=== PATIENT | female | born 1960 | race Caucasian/White ===

== ENCOUNTER 2022-04-25 11:12 | Outpatient (REF) | payer OTHER, SELFPAY ==
--- NOTE | ~2022-04-25 | XR_ITS ---
EXAMINATION: XR KNEE, RIGHT CLINICAL INFORMATION: Right knee pain. COMPARISON: None TECHNIQUE: Four views of the right knee. FINDINGS: No significant tricompartmental degenerative joint changes are seen. There is no acute fracture, dislocation or significant joint effusion. Questionable nonacute deformity of the proximal fibula. The soft tissues are unremarkable. XR/XR knee RT 4V IMPRESSION: No acute fracture or significant degenerative changes. Possible healed proximal fibular fracture. Correlate with patient history.
== END 2022-04-25 11:13 | disposition home or self-care (01) ==
LOC: HO.HMGCX 11:12
PROVIDERS: PCP Internal Medicine; Visit Provider Internal Medicine
DX: M25.561 Pain in right knee (principal)
CPT/HCPCS: 73564

== ENCOUNTER 2023-03-29 11:49 | Outpatient (AMB) | payer OTHER, SELFPAY ==
--- NOTE | 2023-03-29 14:32 | MHC.OFFWIV ---
Intake Vital Signs 03/29/23 14:36 Height 5 ft 4 in Weight 186 lb BMI 31.9 BP 138/80 Blood Pressure Location Rt brachial Position Sitting Pulse 93 Pulse Source Pulse Oximeter Temp 98.2 F Temp Source Temporal Artery Scan Pulse Oximetry (%) 96 Intake Visit Reasons: EST/ right side pain Intake Note: pt is here for c/o right side pain 3x weeks denies injury Patient Tobacco Use Status: Never used Tobacco Allergies fluphenazine [From Prolixin] Allergy (Mild, Verified 03/29/23 14:35) Anaphylaxis ibuprofen [From Advil Cold and Sinus] Adverse Reaction (Mild, Verified 03/29/23 14:35) Swelling pseudoephedrine [From Advil Cold and Sinus] Adverse Reaction (Mild, Verified 03/29/23 14:35) Swelling Coding
[2023-03-29 14:36] VITALS: BP 138/80; PULSE 93; TEMP 36.8; O2SAT 96; BMI 31.9
--- NOTE | 2023-03-29 14:52 | AM.OFFWIN_ITS ---
Intake Vital Signs 03/29/23 14:36 Height 5 ft 4 in Weight 186 lb BMI 31.9 BP 138/80 Blood Pressure Location Rt brachial Position Sitting Pulse 93 Pulse Source Pulse Oximeter Temp 98.2 F Temp Source Temporal Artery Scan Pulse Oximetry (%) 96 Intake Visit Reasons: EST/ right side pain Patient Tobacco Use Status: Never used Tobacco Allergies fluphenazine [From Prolixin] Allergy (Mild, Verified 03/29/23 14:35) Anaphylaxis ibuprofen [From Advil Cold and Sinus] Adverse Reaction (Mild, Verified 03/29/23 14:35) Swelling pseudoephedrine [From Advil Cold and Sinus] Adverse Reaction (Mild, Verified 03/29/23 14:35) Swelling HPI EST/ right side pain HPI Details Patient is a 62-year-old female who comes to the walk in clinic with a friend complaining of acute onset of right side abdominal and flank discomfort for the last few days. She states that she does have a history of IBS which usually flares up with constipation symptoms, however this has not been an issue for her recently. She takes docusate twice a day to soften her stools and they have been regular bowel movements recently. She denies any blood in the stool or irregular bowel movements. She has no dysuria but she did report seeing blood in her urine in the office today. No urinary frequency or other urinary symptoms, except for a sharp pain to the flank area yesterday that she worried was a kidney stone. She denies current fever or chills, but states that she had a temp of 99 yesterday, which resolved today. She reports still having her appendix, and no reported surgeries. She has associated GI history of GERD for which she has been stable with a PPI. She takes psychiatric medications. No pelvic pain, chest pain, nausea vomiting or diarrhea, shortness of breath, cough, weakness or dizziness, malaise or myalgias, anorexia or other associated significant symptoms. [facility] Social History Patient Tobacco Use Status: Never used Tobacco Review of Systems Const All systems reviewed & are unremarkable except as noted in HPI and below Physical Exam Vital Signs: Last Vital Signs Temp 98.2 F 03/29/23 14:36 Pulse 93 03/29/23 14:36 BP 138/80 03/29/23 14:36 Pulse Ox 96 03/29/23 14:36 BMI result Body Mass Index 31.9 Const General: cooperative, healthy appearing, no acute distress, alert, awake, Physically active and well groomed; No anxious, diaphoretic, ill appearing, intoxicated appearing, poor hygiene or tired appearing Nutritional Appearance: average body habitus Orientation/consciousness: oriented to person Limitations: no limitations Chest Chest palpation & inspection: normal palpation of entire chest wall Resp Effort & Inspection: normal respiratory effort, able to speak in complete sentences, no audible wheezes, no cough, no grunting, not labored, no nasal flaring, no retractions and symmetric chest movement Auscultation: clear to auscultation bilaterally, no crackles, no rales, no rhonchi, no wheezes, lung sounds not diminished and No rub present Cardio Rate: regular rate GI Inspection: No abdominal wall ecchymosis, No Abdominal wall edema, No distended, Yes obesity, No visible pulsation and No visible peristalsis Palpation (GI): Soft to palpation, not firm, Tenderness to palpation present (GI) at McBurney's point (some tenderness); with no rebound tenderness, no guarding, not rigid, No hepatosplenomegaly present, no hernias, no masses, no pulsatile masses, no aortic enlargement, No Ascites present, No Rebound tenderness present and No Bladder palpation abnormal Percussion: Yes normal to percussion General: No Bladder palpation abnormal and Yes CVA tenderness (just lateral to it) Back/Spine/Pelvis Back: CVA tenderness (just lateral to it) Skin Other: Good color, warm and dry Neuro General: oriented to person Psych Appearance: grossly normal Mental Status: mental status grossly normal Speech and movement: Normal speech and movement present Affect: Blunted affect present Attitude: cooperative Thought process: Normal thought process present Insight: Good insight present (Psych) Judgement: Good judgement present (Psych) Results AMB Urinalysis, Automated UA Leukoctes 70 Edison/uL Last Edit by Law Van CMA on 03/29/23 15:35 UA Nitrite Negative Last Edit by Law Van CMA on 03/29/23 15:35 UA Urobilinogen 0.2 mg/dL Last Edit by Law Van CMA on 03/29/23 15 :35 UA Protein 0 mg/dL Last Edit by Law Van CMA on 03/29/23 15:35 UA pH 6.5 Last Edit by Law Van CMA on 03/29/23 15:35 UA Blood 25 Raji/uL Last Edit by Law Van, KRISTIN on 03/29/23 15:35 UA Specific [place] 1.015 Last Edit by Law Van CMA on 03/29/23 15:35 UA Ketone Negative Last Edit by Law Van CMA on 03/29/23 15:35 UA Bilirubin 0 mg/dL Last Edit by Law Van CMA on 03/29/23 15:35 UA Glucose 0 mg/dL Last Edit by Law Van CMA on 03/29/23 15:35 Results Reviewed Results Reviewed: Laboratory Last Values Urine pH (Auto) 6.5 03/29/23 15:28 Specific [place] (Auto) 1.015 03/29/23 15:28 Urine Protein (Auto) 0 mg/dL 03/29/23 15:28 Glucose (UA)(Auto) 0 mg/dL 03/29/23 15:28 Urine Ketones (Auto) Negative 03/29/23 15:28 Urine Blood (Auto) 25 Raji/uL 03/29/23 15:28 Urine Nitrite (Auto) Negative 03/29/23 15:28 Urine Bilirubin (Auto) 0 mg/dL 03/29/23 15:28 Urine Urobilinogen (Auto) 0.2 mg/dL 03/29/23 15:28 Leukocyte Esterase (Auto) 70 Edison/uL 03/29/23 15:28 Assessment & Plan Assessment & Plan (1) Flank pain: Code(s): R10.9 - Unspecified abdominal pain Plan Patient is a 62-year-old female with acute onset of right side abdominal and flank discomfort for the last few days, as well as possible gross hematuria today, positive for microscopic hematuria and leukocytes today on dip. She does have a history of IBS which usually flares up with constipation symptoms, however she takes docusate twice a day to soften her stools and they have been regular bowel movements recently. She is eating and drinking normally, with no nausea, vomiting or diarrhea. She reports a low grade temp yesterday that has resolved today. She is non toxic in appearance with stable vitals today. Her GI exam is concerning for possible appendicitis however, due to tenderness over McBurney's point, although apparently the discomfort is worse at the right flank, closer to the kidney. Her urine suggests a possible UTI, worrisome for being upper tract involvement. I told her that we didn't have the ability to do a proper evaluation of her at the walk in, and that the safest option was to go to the emergency department. The patient and her friend were upset at this and they stated that they had already waited over two hours to be seen by me. I told them that a CT would be needed to rule out appendicitis and kidney stone as well as other possible life threatening causes of abdominal/flank pain. I did tell them that it is possible that this is pyelonephritis and that it could potentially be treated out patient, but that I couldn't treat the other potentially life threatening causes and that she could mask appendicitis with the antibiotic. She stated that if I wrote the antibiotic for her, that she would go to the emergency department if it didn't resolve her issue by the next day, or if she got any worse at all. Her friend witnessed this. Orders: Orders AMB Urinalysis Automated 03/29/23 Z13.9 - Encounter for screening, unspecified Medications: New sulfamethoxazole-trimethoprim 800-160 mg (Bactrim DS) 1 tab PO BID 20 tabs 0RF 10 days Coding Level of Care Code Est Pt Level 4 (89040) Diagnoses Flank pain R10.9
== END 2023-03-29 15:41 | disposition home or self-care (01) ==
PROVIDERS: PCP Internal Medicine; Visit Provider Physician Assistant Medical
DX: R10.9 Unspecified abdominal pain (principal)
CPT/HCPCS: 81003; 99214

== ENCOUNTER 2024-01-02 15:06 | Outpatient (AMB) | payer OTHER, SELFPAY ==
[2024-01-02 15:13] VITALS: BP 132/82; PULSE 94; TEMP 36.9; O2SAT 97
--- NOTE | 2024-01-02 15:13 | AM.OFFWIN_ITS ---
Intake Vital Signs 01/02/24 15:13 Height 5 ft 4 in BP 132/82 Blood Pressure Location Lt brachial Position Sitting Pulse 94 Pulse Source Pulse Oximeter Temp 98.5 F Temp Source Oral Pulse Oximetry (%) 97 Oxygen Delivery Method Room Air Intake Visit Reasons: EP lower back pain Intake Note: pt is here for lower back pain, patient denies injury but states that she has had more urine output and frequency Patient Tobacco Use Status: Never used Tobacco Allergies fluphenazine [From Prolixin] Allergy (Mild, Verified 01/02/24 15:28) Anaphylaxis ibuprofen [From Advil Cold and Sinus] Adverse Reaction (Mild, Verified 01/02/24 15:28) Swelling pseudoephedrine [From Advil Cold and Sinus] Adverse Reaction (Mild, Verified 01/02/24 15:28) Swelling Do you need a note to return to daycare/school/sports/work: No HPI HPI Comments History of Present Illness Details 63 y/o female patient who presents to [facility] in clinic with c/o lower b ack pain associated with urinary frequency x 5 days. [facility] Social History Patient Tobacco Use Status: Never used Tobacco Review of Systems Const All systems reviewed & are unremarkable except as noted in HPI and below Physical Exam Vital Signs: Last Vital Signs Temp 98.5 F 01/02/24 15:13 Pulse 94 01/02/24 15:13 BP 132/82 01/02/24 15:13 Pulse Ox 97 01/02/24 15:13 Oxygen Delivery Method Room Air 01/02/24 15:13 Const General: comfortable and no acute distress Nutritional Appearance: obese Orientation/consciousness: patient oriented x3 Back/Spine/Pelvis Back: back tenderness Thoracic/Lumbar Spine: thoracic spinal tenderness and lumbar spinal tenderness Neuro General: patient oriented x3, gait normal and moves all extremities Psych Speech and movement: Normal speech and movement present Results AMB Urinalysis, Automated UA Leukoctes 500 Edison/uL Last Edit by Law Van CMA on 01/02/24 15:3 2 UA Nitrite Negative Last Edit by Law Van CMA on 01/02/24 15:32 UA Urobilinogen 0.2 mg/dL Last Edit by Law Van CMA on 01/02/24 15 :32 UA Protein 0 mg/dL Last Edit by Law Van CMA on 01/02/24 15:32 UA pH 6.0 Last Edit by Law Van CMA on 01/02/24 15:32 UA Blood 25 Raji/uL Last Edit by Law Van CMA on 01/02/24 15:32 UA Specific [place] 1.015 Last Edit by Law Van CMA on 01/02/24 15:32 UA Ketone Negative Last Edit by Law Van CMA on 01/02/24 15:32 UA Bilirubin 0 mg/dL Last Edit by Law Van CMA on 01/02/24 15:32 UA Glucose 0 mg/dL Last Edit by Law Van CMA on 01/02/24 15:32 Results Reviewed Results Reviewed: Laboratory Last Values Urine pH (Auto) 6.0 01/02/24 15:30 Specific [place] (Auto) 1.015 01/02/24 15:30 Urine Protein (Auto) 0 mg/dL 01/02/24 15:30 Glucose (UA)(Auto) 0 mg/dL 01/02/24 15:30 Urine Ketones (Auto) Negative 01/02/24 15:30 Urine Blood (Auto) 25 Raji/uL 01/02/24 15:30 Urine Nitrite (Auto) Negative 01/02/24 15:30 Urine Bilirubin (Auto) 0 mg/dL 01/02/24 15:30 Urine Urobilinogen (Auto) 0.2 mg/dL 01/02/24 15:30 Leukocyte Esterase (Auto) 500 Edison/uL 01/02/24 15:30 Assessment & Plan Assessment & Plan (1) Low back pain: Code(s): M54.50 - Low back pain, unspecified Qualifiers: Chronicity: chronic Back pain laterality: midline Sciatica presence: without sciatica Qualified Code(s): M54.50 - Low back pain, unspecified; G89.29 - Other chronic pain Plan: Acetaminophen for pain relief Ice/Hot (2) Cystitis: Code(s): N30.90 - Cystitis, unspecified without hematuria Plan: Prescribed Macrobid x 7 days Hydrate well with plenty of water Clean catch UA ordered. Orders: Orders AMB Urinalysis Automated Today Z13.9 - Encounter for screening, unspecified Medications: New nitrofurantoin monohyd/m-cryst 100 mg (Macrobid) must administer with a meal/food 100 mg PO Q12H 7 days 14 caps 0RF N30.90 - Cystitis, unspecified without hematuria acetaminophen 1,000 mg (2 x 500 mg) PO Q6H PRN 30 caps 0RF pain (scale score 4- 6) G89.29 - Other chronic pain, M54.50 - Low back pain, unspecified Coding Level of Care Code Est Pt Level 3 (64236) Diagnoses Chronic midline low back pain without sciatica M54.50; G89.29 Chronicity: chronic Back pain laterality: midline Sciatica presence: without sciatica Cystitis N30.90 Time Spent (min) 15
== END 2024-01-02 15:48 | disposition home or self-care (01) ==
PROVIDERS: PCP Internal Medicine; Visit Provider Nurse Practitioner Family
DX: M54.50 Low back pain, unspecified (principal); G89.29 Other chronic pain; N30.90 Cystitis, unspecified without hematuria; Z13.9 Encounter for screening, unspecified
CPT/HCPCS: 81003; 99213

== ENCOUNTER 2024-04-05 14:52 | Outpatient (REF) | payer OTHER, SELFPAY | END 2024-04-05 14:53 | disposition home or self-care (01) | LOC: HO.LAB 14:52 | PROVIDERS: PCP Internal Medicine; Visit Provider Physician Assistant | DX: R05.9 Cough, unspecified (principal); J06.9 Acute upper respiratory infection, unspecified | CPT/HCPCS: 99202 ==

== ENCOUNTER 2024-04-05 14:52 | Outpatient (AMB) | payer OTHER, SELFPAY ==
--- NOTE | 2024-04-05 15:12 | AM.OFFWIN_ITS ---
Intake Vital Signs 04/05/24 15:13 Height 5 ft 4 in Weight 195 lb 4 oz BMI 33.5 BP 130/70 Blood Pressure Location Rt brachial Position Sitting Pulse 98 Pulse Source Pulse Oximeter Pulse Oximetry (%) 93 Oxygen Delivery Method Room Air Intake Visit Reasons: EP need to be tested for covid/body aches Intake Note: Patient is here today for sick visit for possible covid exposure 3 days ago. Symptoms are body aches and vomiting. 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 She denies any fevers, ear pain, sinus pain or shortness of breath. She states that her mother tested positive for COVID today and she visits her mom 3 days ago so she is concerned about the exposure. She denies a history of COPD or asthma. She states she has not tried taking any medications to feel better. [facility] Social History Patient Tobacco Use Status: Never used Tobacco Review of Systems Const All systems reviewed & are unremarkable except as noted in HPI and below Physical Exam Vital Signs: Last Vital Signs Pulse 98 04/05/24 15:13 BP 130/70 04/05/24 15:13 Pulse Ox 93 04/05/24 15:13 Oxygen Delivery Method Room Air 04/05/24 15:13 BMI result Body Mass Index 33.5 Const General: cooperative, healthy appearing, comfortable and no acute distress Orientation/consciousness: patient oriented x3 Limitations: no limitations HEENT Head: Yes normal to inspection Ears: hearing grossly normal bilaterally, external ears normal and TM's normal bilaterally General nose exam: Normal external nose present, Normal nares present and No nasal discharge present Face and sinus: Yes normal facial exam and Yes sinuses nontender Mouth: Normal oral and palatal mucosa present and moist mucous membranes Throat: Yes tonsils normal, Yes uvula midline and Yes posterior oropharynx abnormal (Erythema) Eyes General: appearance normal, both eyes and all related structures Neck Neck: Yes normal visual inspection Resp Effort & Inspection: normal respiratory effort, able to speak in complete sentences, Actively coughing, no respiratory distress, not tachypneic, no tripod positioning and no use of accessory muscles Auscultation: clear to auscultation bilaterally Cardio Rate: regular rate Rhythm: regular rhythm Heart sounds: normal S1 and S2 Skin General skin exam: no rashes or lesions noted Neuro General: patient oriented x3 Extrem General: Yes normal to inspection and Yes no clubbing, cyanosis or edema Assessment & Plan Assessment & Plan (1) URI (upper respiratory infection): Code(s): J06.9 - Acute upper respiratory infection, unspecified Qualifiers: URI type: unspecified URI Qualified Code(s): J06.9 - Acute upper respiratory infection, unspecified Plan: Will get a chest x-ray as patient was satting 93% on room air however offered no complaints of shortness of breath. Flu COVID and RSV testing sent. Recommended patient stay hydrated get lots of rest and use [id number] medications to treat her symptoms. Plan See above Orders: Orders XR chest 2V Today R05.9 - Cough, unspecified SARS-CoV2/FLU/RSV Today J06.9 - Acute upper respiratory infection, unspecified Coding Level of Care Code New Pt Level 4 (82794) Diagnoses Upper respiratory tract infection, unspecified type J06.9 URI type: unspecified URI
[2024-04-05 15:13] VITALS: BP 130/70; PULSE 98; O2SAT 93; BMI 33.5
== END 2024-04-05 15:59 | disposition home or self-care (01) ==
PROVIDERS: PCP Internal Medicine; Visit Provider Physician Assistant
DX: J06.9 Acute upper respiratory infection, unspecified (principal)

== ENCOUNTER 2024-04-05 15:53 | Outpatient (REF) | payer OTHER, SELFPAY ==
--- NOTE | ~2024-04-05 | XR_ITS ---
EXAMINATION: XR CHEST CLINICAL INFORMATION: Cough. COMPARISON: None available. TECHNIQUE: 2 views of the chest were obtained. FINDINGS: No significant abnormality is noted involving the heart, lungs, mediastinum, or soft tissues. Mild degenerative changes of the spine. XR/XR chest 2V IMPRESSION: Unremarkable examination. Electronically signed by: Naseem Whelan MD 04/05/2024 05:02 PM EDT RP
[2024-04-06 11:02] LABS: Influenza A PCR NEGATIVE (Negative); Influenza B PCR NEGATIVE (Negative); Resp Syncy Virus RNA Qual PCR NEGATIVE (Negative); SARS COV2 PCR INHOUSE NEGATIVE (Negative)
== END 2024-04-05 15:54 | disposition home or self-care (01) ==
LOC: HO.HMGCX 15:53
PROVIDERS: PCP Internal Medicine; Visit Provider Physician Assistant
DX: R05.9 Cough, unspecified (principal); J06.9 Acute upper respiratory infection, unspecified
CPT/HCPCS: 0241U; 71046

== ENCOUNTER 2024-11-25 13:21 | Outpatient (REF) | payer OTHER, SELFPAY ==
--- NOTE | ~2024-11-25 | MR_ITS ---
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 No acute fracture or osseous marrow replacement process. Craniocervical junction is unremarkable. Cervical cord is normal in size and signal. Prevertebral soft tissues are intact. C1-2: Unremarkable. C2-3: Unremarkable. C3-4: Tiny central disc protrusion effaces the thecal sac. No contour deformity in the spinal cord or spinal stenosis. Mild bilateral uncovertebral osteophyte foraminal stenoses. C4-5: Tiny right central disc protrusion effaces the thecal sac. There is slight contour deformity in the spinal cord. No spinal stenosis. Moderate to moderately severe bilateral uncovertebral osteophyte foraminal stenoses, right greater than left. C5-6: Moderate disc osteophyte complex effaces the thecal sac. There is mild contour deformity in the spinal cord. No spinal stenosis. Moderately severe bilateral uncovertebral osteophyte foraminal stenoses. C6-7: Mild disc osteophyte complex effaces the thecal sac. No contour deformity in the spinal cord or spinal stenosis. Moderate right and severe left uncovertebral osteophyte foraminal stenoses. C7-T1: Moderate disc osteophyte complex effaces the thecal sac. There is mild contour deformity in the spinal cord. No spinal stenosis. Mild bilateral uncovertebral osteophyte foraminal stenoses. Impression: 1.No acute process. 2. No significant spinal stenosis or spinal cord abnormality. 3. Multilevel facet arthrosis and uncovertebral osteophytosis resulting in varying degrees of foraminal stenoses. This document has been electronically signed by: Kailee Garrett DO on 11/26/2024 14:28:16
--- OUTSIDE RECORDS SUMMARY | 2024-11-25 13:27 | XMS_ITS | Encounter Summary ---
Author Organization [employer] Address [address] [place] [address] Care Team Providers Care Document Manager Name Role Phone Unavailable Primary Care Provider Unavailabl e Encounter Details Date Type Department Care Team (Latest Contact Info) Description 10/09/2020 Abstract [facility] CONVERSIONS Dental, Provider, DDS Social History Tobacco Use Types Packs/Day Years Used Date Smoking Tobacco: Never Assessed Comments Unknown Sex and Gender Information Value Date Recorded Sex Assigned at Female 05/06/2022 10:37 AM EDT Legal Sex Female 10:37 AM EDT Gender Identity Female 05/06/2022 10:37 AM EDT Sexual Orientation Straight 05/06/2022 10 :37 AM EDT documented as of this encounter Plan of Treatment Not on file documented as of this encounter Visit Diagnoses Not on filedocumented in this encounter
== END 2024-11-25 13:22 | disposition home or self-care (01) ==
LOC: HO.MRI 13:21
PROVIDERS: PCP Internal Medicine; Visit Provider Psychiatry & Neurology Neurology
DX: G95.9 Disease of spinal cord, unspecified (principal)
CPT/HCPCS: 72141

== ENCOUNTER → 2024-11-25 13:30 | Outpatient (BNV) | payer OTHER, SELFPAY | PROVIDERS: PCP Internal Medicine; Visit Provider Radiology Diagnostic Radiology | DX: M46.92 Unspecified inflammatory spondylopathy, cervical region (principal) | CPT/HCPCS: 72141 ==

== ENCOUNTER 2025-04-14 13:40 | Outpatient (AMB) | payer OTHER, SELFPAY ==
--- NOTE | 2025-04-14 13:45 | A.OFFVIS_ITS ---
Intake Visit Reasons: 4 mo fu Allergies fluphenazine (From Prolixin) Allergy (Mild, Verified 04/14/25 13:53) Anaphylaxis ibuprofen (From Advil Cold and Sinus) Adverse Reaction (Mild, Verified 04/14/25 13:53) Swelling pseudoephedrine (From Advil Cold and Sinus) Adverse Reaction (Mild, Verified 04/14/25 13:53) Swelling Medication List - Last Reconciled 04/14/25 by Sarita Cody CNP acetaminophen 1,000 mg (2 x 500 mg) PO Q6H PRN bupropion HCl XL 150 mg PO DAILY cholecalciferol (vitamin D3) 50 mcg PO DAILY docusate sodium 100 mg PO BID escitalopram oxalate 20 mg PO DAILY gabapentin 600 mg PO BEDTIME lamotrigine 150 mg PO BID lisinopril 5 mg PO DAILY loratadine 10 mg PO DAILY lorazepam 1 mg PO BID PRN melatonin 6 mg PO BEDTIME meloxicam 15 mg PO DAILY olanzapine 5 mg PO BEDTIME olanzapine 20 mg PO BEDTIME pantoprazole 40 mg PO DAILY HPI Comments Details: Pain was better with gabapentin 600mg at bedtime, no medication side effects. She noted reduced frequency of sciatica episodes. Some ongoing chronic low back pain and left leg weakness continue. Pain worsens with extended periods of standing of movement. No falls. Memory was about the same. Previously, complaints of pain in left leg and calf that initially started as s ciatica. History of being off balance that started in 2023 with?5 falls in the last one year.?She notes that her left leg is weaker and sometimes she has trouble getting it up to the running board in a pickup truck.? She feels her balance is worsening and feels unsteady.? There is no true vertigo although sometimes she gets lightheaded.? In 10/2024, she had an episode of left-sided sciatica that subsided within the same day.? She's also had some short-term memory problems, losing things, misplacing things and repeating herself.? She lives alone.? She has 2 daughters who live in the area.? She had a CT scan of the brain on 06/29, which was unremarkable and an MRI of the brain on 09/16/24, which is also reported as being normal. She has?chronic schizoaffective disorder on disability since 2013. [facility], [facility] Medical History (Updated 04/14/25 @ 13:54 by Sarita Cody CNP) URI (upper respiratory infection) Knee pain, right GERD (gastroesophageal reflux disease) Schizoaffective disorder Social History Patient Tobacco Use Status: Never used Tobacco Review of Systems Const Denies chills, Denies daytime sleepiness, Denies difficulty sleeping, Denies fatigue, Denies fever(s), Denies frequent falls, Denies headache(s), Denies increased appetite, Denies poor appetite, Denies snoring, Denies weakness, Denies weight gain and Denies weight loss Eyes Denies loss of vision ENT Denies vertigo, Reports dizziness, Denies headache(s) and Denies neck pain Card Denies chest pain at rest, Denies chest pain with activity, Denies syncope, Denies leg edema, Denies palpitations, Denies dyspnea and Denies dyspnea on exertion Resp Denies cough, Denies dyspnea, Denies dyspnea on exertion and Denies snoring GI Denies abdominal pain, Denies constipation, Denies heartburn, Denies diarrhea and Denies nausea Denies urinary frequency, Denies urinary incontinence and Denies urinary urgency Musc Reports abnormal gait (balance difficulty), Denies back pain, Denies myalgias, Denies arthralgias, Denies neck pain, Denies numbness, Denies tingling and Reports other (L side sciatica ) Neuro Reports abnormal gait (balance difficulty), Denies vertigo, Reports dizziness, Denies syncope, Denies frequent falls, Denies headache(s), Denies lack of coordination, Denies loss of vision, Reports memory loss, Denies numbness, Denies Other visual disturbances, Denies restless legs, Denies seizure-like activity, Denies tingling, Denies paresthesias, Denies tremor(s) and Denies weakness Psych Denies anxiety, Denies depression, Denies auditory hallucinations, Reports memory loss and Denies visual hallucinations Endo Denies fatigue and Denies palpitations Physical Exam Const Other: General Appearance:? normal, in no acute distress. Heart:? S1, S2 normal, no murmurs. Lungs:? clear anteriorly and posteriorly. Musculoskeletal:? normal. Extremities:? no edema. Psych:? alert, as below. Neuro Other: Abnormal Neurological Findings:?flat affect. Generally slow responses. Mild cogwheeling of upper extremities. Hyperreflexia in LE with equivocal extensor plantar on right. MMSE 24/30. Mental Status: alert, as below. Cranial Nerves: Pupils are equal, round, and reactive to light. External ocular muscles are intact. Visual friend are full, no ptosis. Face is symmetrical, no facial weakness or droop. Facial sensations are normal. Tongue protrudes in midline. Palate elevates symmetrically. Shoulder shrugging is normal Motor Examination: DTRs 3+ in lower extremities. Plantars are equivocal extensor on the right and flexor on the left. Sensory Exam: Normal light touch, temperature, pinprick, vibration, and joint- position sensations. Rhomberg sign is absent. Coordination: No ataxia. No titubation. Gait Exam: Mild stiff legged gait with slightly broad base. Cerebellar Signs: [id number] is okay. Extrapyramidal System: Rigidity as above. No tremor. No bradykinesia. No bradyphrenia. Normal arm swing and posture. No propulsion or retropulsion. Speech: Normal. MMSE Level of Consciousness: Alert. Orientation: Knows correct year, month, date, day and season. Knows correct city, county and state. Knows correct location and floor. Registration: Able to register 3 objects. Attention: Unable to do serial 7's. Recall: Able to recall 2 out of 3 objects. Language: Normal spontaneous speech, fluency, repetition, naming, comprehension, reading, and writing. Total Score: 24/30. Results Reviewed Results Reviewed: 11/23/24 EEG- ( Hz backgraoun symmetrical. Occasion sharp configuration bilateral temporal theta activity of questionable significance 12/06/24 NCV/EMG LE Normal motor and sensory nerve conduction velocities in the lower extremities. 11/26/24 MRI C spine : No cord compression . moderate spondylosis with foraminal encroachment at multiple levels. Assessment & Plan Assessment & Plan (1) Lumbar radiculopathy: Code(s): M54.16 - Radiculopathy, lumbar region Category: Medical Plan: Continue gabapentin 300mg 2 capsules at bedtime. Discussed option for PT, declining at this time. (2) Cervical myelopathy: Code(s): G95.9 - Disease of spinal cord, unspecified Category: Medical (3) MCI (mild cognitive impairment): Code(s): G31.84 - Mild cognitive impairment of uncertain or unknown etiology Category: Medical Plan . Medications: New gabapentin 600 mg (2 x 300 mg) PO BEDTIME 60 caps 5RF 30 days Coding Level of Care Code Est Pt Level 4 (72057) Diagnoses Lumbar radiculopathy M54.16 Cervical myelopathy G95.9 MCI (mild cognitive impairment) G31.84
== END 2025-04-14 14:08 | disposition home or self-care (01) ==
LOC: HO.HSM 13:40
PROVIDERS: PCP Internal Medicine; Referring Provider Internal Medicine; Visit Provider Registered Nurse
DX: M54.16 Radiculopathy, lumbar region (principal); G95.9 Disease of spinal cord, unspecified; G31.84 Mild cognitive impairment of uncertain or unknown etiology
CPT/HCPCS: 99214

== ENCOUNTER → 2025-04-14 13:40 | Outpatient (BNVA) | payer OTHER, SELFPAY | PROVIDERS: PCP Internal Medicine; Referring Provider Internal Medicine; Visit Provider Registered Nurse | DX: M54.16 Radiculopathy, lumbar region (principal); G95.9 Disease of spinal cord, unspecified; G31.84 Mild cognitive impairment of uncertain or unknown etiology | CPT/HCPCS: 99212 ==